=== PATIENT | male | born 1930 | race Caucasian/White ===

== ENCOUNTER → 2016-09-11 | Outpatient (CLI) | payer OTHER | LOC: BHFA 10:00 | PROVIDERS: ATTEND Internal Medicine | DX: R06.00 Dyspnea, unspecified (principal) ==

== ENCOUNTER → 2016-09-28 | Outpatient (CLI) | payer OTHER | LOC: BHFA 09:30 | PROVIDERS: ATTEND Internal Medicine Cardiovascular Disease | DX: R06.09 Other forms of dyspnea (principal); I10 Essential (primary) hypertension; D68.51 Activated protein C resistance ==

== ENCOUNTER 2017-03-17 08:21 | Day surgery (SDC) | payer OTHER ==
[2017-03-17 08:52] VITALS: RESP 16; TEMP 97.7
--- NOTE | 2017-03-17 09:45 | PDPROPOC ---
Sedation Plan of Care ASA Classification: ASA 3 Planned drugs: versed fentanyl Mallampati Score: Class 2 332 Rule: 322
--- NOTE | 2017-03-17 09:48 | PDGENHP ---
History & Physical Chief Complaint: positive cologaurd test History of Present Illness: last colon 2010, now with positive cologaurd Pertinent Past, Social, Family History: no toabacco, social alcohol fhx noncontrib Relevant Physical Exam: A+Ox3, CTA, S1S2, RRR, +BS, soft nt Cardiorespiratory Assessment: CTA, S1S2, RRR class 3 pt
[2017-03-17] MEDS ORDERED: MIDAZOLAM 2 MG/2 ML VIAL ONE (09:49)
[2017-03-17] MEDS ORDERED: fentaNYL 100 MCG/2 ML INJ ONE (09:50)
--- NOTE | 2017-03-17 10:28 | POSTOPPROG ---
Post Op Note Date of Operation: 03/17/17 Surgeon: J Carlos Shelton Anesthesia: IV Sedation (versed 2.5 mg fetanyl 75 mcg iv) Pre-op Diagnosis: positive cologaurd Post-op Diagnosis: two small 2-3mm polyps, diverticulosis Indication: positive cologaurd Procedure: colon with bx Findings: diverticulosis in sig, d c, transverse, two small polyps in tc removed with Inf/Abcess present in the surg proc area at time of surgery?: No EBL: Minimal (few ml vrom bx) Complications: none immediate
[2017-03-17 11:03] VITALS: BP 145/68; PULSE 54; O2SAT 95
--- NOTE | 2017-03-17 20:49 | GPN ---
[f rep st] PROCEDURE NOTE DATE OF PROCEDURE: 03/17/2017 PROCEDURE: Colonoscopy and biopsy. INDICATIONS: Positive Cologuard test. Last colonoscopy was in 2010 and revealed diverticulosis and no polyps. INFORMED CONSENT: I discussed with the patient regarding the procedure, alternatives, benefits, and risks including bleeding, perforation, infection, risk of medication. Informed consent was signed and witnessed. COMPLICATIONS: None immediate. MEDICATIONS USED: Versed 2.5 mg IV, fentanyl 75 mcg IV. DESCRIPTION OF PROCEDURE: Patient was placed in left lateral decubitus position. After adequate IV sedation, I performed a visual and digital and anorectal examination. The video colonoscope was ins erted via the rectum and advanced under visualization to the cecum, identified by the ileocecal valv e, confluence of taeniae, and appendiceal orifice. I was able to enter the terminal ileum. Upon wi thdrawal of the instrument, careful attention was paid to mucosal detail. The prep was very good. I noted a 2-3 mm semi-sessile polyp in the proximal transverse colon that was removed in total by co ld biopsy. There was an additional 2-3 mm abnormality in the distal transverse colon, that was eith er a polyp or a lymphoid aggregate. This was removed in total by cold biopsy in piecemeal fashion. The patient did have diverticulosis noted in the sigmoid colon, descending colon, and transverse co otilio. Retroflexed examination was performed in the rectum. When I did a retroflexed examination in the rectum I did notice altered vascularity, consistent with his radiation for his prostate cancer. The endoscope was un-retroflexed and advanced back to the proximal ascending colon and air was remov ed. The endoscope was then completely withdrawn, confirming the above findings. The patient tolera baldev the procedure well and was transferred to the recovery room in satisfactory condition. IMPRESSION: 1. Two small 2-3 mm polyps in the transverse colon, 1 in the distal, 1 in the proximal, removed in total by cold biopsy in piecemeal fashion. 2. Diverticulosis in the transverse colon, sigmoid colon, and descending colon. 3. Vascular changes in the rectum, consistent with radiation from his prostate treatment. RECOMMENDATIONS: 1. Follow up pathology on polyps. 2. The patient to restart Lovenox and Coumadin today as per managing physician. 3. High-fiber, high fluid diet. There is no need to avoid seeds or nuts with diverticulosis. 4. No repeat colonoscopies given patient's age and negative exam in 2011 and this exam with only ti ny possible polypoid lesions. 5. Our GI National Guidelines do not recommend further evaluation for a positive Cologuard test if the colonoscopy is negative. 6. Follow up with PCP and specialist as scheduled. Thank you for allowing me to participate in his health care. Do not hesitate to call me if you have any questions. Copy requested to: Dr. Letty Andrade /[id number]/MODL
== END 2017-03-17 11:23 | disposition home or self-care (01) ==
LOC: FSGY 08:21
PROVIDERS: ATTEND Internal Medicine Gastroenterology
PROC: 0DBL8ZZ Excision of Transverse Colon, Via Natural or Artificial Opening Endoscopic (ICD-10-PCS; principal; 2017-03-17 09:45)
PROC: 0DJD8ZZ Inspection of Lower Intestinal Tract, Via Natural or Artificial Opening Endoscopic (ICD-10-PCS; principal; 2017-03-17 09:45)
DX: Z12.11 Encounter for screening for malignant neoplasm of colon (principal); D12.3 Benign neoplasm of transverse colon; K57.30 Diverticulosis of large intestine without perforation or abscess without bleeding; Z92.3 Personal history of irradiation; Z85.46 Personal history of malignant neoplasm of prostate; Z79.01 Long term (current) use of anticoagulants
CPT/HCPCS: J2250; J3010

== ENCOUNTER 2017-06-24 12:03 | Observation (INO) | payer OTHER ==
--- NOTE | 2017-06-24 12:40 | EDPHY ---
H & P Stated Complaint: difficulty finding words at 10 am this am lasting 30 m ins now resolved Time Seen by Provider: 06/24/17 12:39 HPI/ROS: CHIEF COMPLAINT: Transient vision loss, expressive aphasia HISTORY OF PRESENT ILLNESS: The patient presents the ED after he experienced a focal area of transient vision loss in his left eye followed by an episode of expressive aphasia earlier today. The patient's symptoms have resolved. He denies any focal numbness or weakness. He denies any headache. The patient is chronically anticoagulated for thromboembolic disease. The patient has no prior history of documented TIA or stroke. The patient reports a similar transient loss of vision in the left eye 6 weeks ago. He was evaluated by his instructional services librarian who reported he detected no obvious ocular disease. The patient denies history of fall or trauma. He denies history of neck pain or cervical manipulation. REVIEW OF SYSTEMS: A comprehensive 10 point review of systems is otherwise negative aside from elements mentioned in the history of present illness. Source: Patient Exam Limitations: No limitations - Personal History Current Tetanus/Diphtheria Vaccine: Unsure Current Tetanus Diphtheria and Acellular Pertussis (TDAP): Unsure Tetanus Vaccine Date: <10 YRS - Medical/Surgical History Hx Asthma: Yes Hx Chronic Respiratory Disease: No Hx Diabetes: No Hx Cardiac Disease: No Hx Renal Disease: No Hx Cirrhosis: No Hx Alcoholism: No Hx HIV/AIDS: No Hx Splenectomy or Spleen Trauma: No Other PMH: HTN,factor V, P.E., KNEE SURGERY, ASTHMA. SHOULDER AND ARM SURGERY, PROSTATE CANCER, prostate cyro-ablation, "irregular heart rate" - Social History Smoking Status: Never smoked - Physical Exam Exam: General Appearance: Alert, no distress Eyes: Pupils equal and round no pallor or injection ENT, Mouth: Mucous membranes moist Respiratory: There are no retractions, lungs are clear to auscultation Cardiovascular: Regular rate and rhythm Gastrointestinal: Abdomen is soft and nontender, no masses, bowel sounds normal Neurological: A&O, normal motor function, normal sensory exam, normal cranial nerves, NIH stroke scale 0 Skin: Warm and dry, no rashes Musculoskeletal: Neck is supple nontender Extremities: symmetrical, full range of motion Psychiatric: Patient is oriented X 3, there is no agitation Constitutional: Initial Vital Signs Temperature (C) 37.0 C 06/24/17 12:06 Heart Rate 83 06/24/17 12:06 Respiratory Rate 16 06/24/17 12:06 Blood Pressure 172/87 H 06/24/17 12:06 O2 Sat (%) 97 06/24/17 12:06 O2 Delivery Mode Room Air Allergies/Adverse Reactions: No Known Allergies Allergy (Unverified 02/05/15 03:12) Home Medications: Medication Instructions Recorded Ascorbic Acid [Vitamin C] 1,000 mg PO DAILY 10/08/11 Atorvastatin Calcium [Lipitor] 10 mg PO DAILY20 10/08/11 Beta-Carotene(A) W-C & E/Min 1 tab PO DAILY 10/08/11 [Ocuvite] Cholecalciferol (Vitamin D3) 1,000 unit PO BID 10/08/11 [Vitamin D3] MAGNESIUM [Magnesium Oxide] 1 tab PO DAILY 10/08/11 Terazosin HCl 10 mg PO DAILY20 10/08/11 Triamterene/Hydrochlorothiazid 1 each PO DAILY 10/08/11 [Triamterene-Hctz 37.5-25 mg Cp] Verapamil HCl [Calan Sr] 180 mg PO BID 10/08/11 Warfarin Sodium [Coumadin] 2.5 mg PO TUTHSA 10/08/11 Warfarin Sodium [Coumadin] 5 mg PO SUMOWEFR 10/08/11 Zafirlukast [Accolate] 20 mg PO BID 10/08/11 Degarelix Acetate 12/10/15 Allopurinol BID 03/17/17 Lovenox 100 MG (*) 100 mg SQ BID 03/17/17 Medical Decision Making - Diagnostics EKG Interpretation: EKG: Complete interpretation has been separately recorded in the [employer]ster archive. Summary impression: Sinus rhythm, no abnormalities appreciated Imaging Results: Imaging Impressions Head CT 06/24/17 13:14 Impression: Nothing acute on this noncontrasted scan. Findings and recommendations discussed with Dr. Keny Fermin at 1400 hour, 06/24/2017. Final report concurs with initial preliminary interpretation. Head CTA 06/24/17 13:14 Impression: Nothing focal or acute. Findings discussed with Keny Fermin, at 1400 hours, 06/24/2017. Final report concurs with initial preliminary interpretation. Neck CTA 06/24/17 13:14 Impression: 1. Mild amount of bilateral carotid bulb plaque, left worse than right. No focal rate-limiting stenosis. 2. Significant tortuosity to the left internal carotid artery at the cervical portion. Findings discussed with Keny Fermin, at 1400 hours, 06/24/2017. Final report concurs with initial preliminary interpretation. Note: All stenoses are calculated using NASCET criteria. ED Course/Re-evaluation: The patient is currently anticoagulated with Coumadin. He presents to the ED after possible TIA. His NIH stroke scale is currently 0. He is not a candidate for thrombolytics therapy. The patient was taken for a CT scan of the brain which demonstrates no evidence of intracranial hemorrhage. CT angiogram of the head neck demonstrate no evidence of obvious stenosis or dissection. The patient remained neurologically intact in the ED. His INR is slightly subtherapeutic at 1.6. I discussed the case with his primary care provider. The patient will be admitted to the hospital this evening for possible TIA. Because the patient's INR is subtherapeutic he will be bridged. Consultation is made with Dr. Small from the hospitalist service. The patient will be started on IV heparin. Dr. Pérez from Neurology will also consult on the patient. Differential Diagnosis: Differential diagnosis considered includes stroke, TIA, hypertensive emergency, migraine variant, intracranial hemorrhage - Data Points Laboratory Results: Laboratory Results 06/24/17 12:52 06/24/17 12:52 06/24/17 06/24/17 06/24/17 13:02 12:52 12:52 WBC RBC Hgb POC Hgb 15.0 gm/dL gm/dL (13.7-17.5) Hct POC Hct 44 % % (40-51) MCV MCH MCHC RDW Plt Count MPV Neut % (Auto) Lymph % (Auto) [place] % (Auto) Eos % (Auto) Baso % (Auto) Nucleat RBC Rel Count Absolute Neuts (auto) Absolute Lymphs (auto) Absolute Monos (auto) Absolute Eos (auto) Absolute Basos (auto) Absolute Nucleated RBC Immature Gran % Immature Gran # PT 19.3 SEC H SEC (12.0-15.0) INR 1.62 H (0.83-1.16) POC Sodium 138 mEq/L mEq/L (134-144) Sodium 137 mEq/L mEq/L (134-144) POC Potassium 3.6 mEq/L mEq/L (3.3-5.0) Potassium 4.0 mEq/L mEq/L (3.5-5.2) POC Chloride 101 mEq/L mEq/L (97-110) Chloride 100 mEq/L mEq/L (97-110) Carbon Dioxide 26 mEq/l mEq/l (22-31) Anion Gap 11 mEq/L mEq/L (8-16) POC BUN 20 mg/dL mg/dL (7-23) BUN 21 mg/dL mg/dL (7-23) Creatinine 1.2 mg/dL mg/dL (0.7-1.3) POC Creatinine 1.4 mg/dL H mg/dL (0.7-1.3) Estimated GFR 58 Glucose 93 mg/dL mg/dL (70-100) POC Glucose 99 mg/dL mg/dL (70-100) Calcium 9.8 mg/dL mg/dL (8.5-10.4) 06/24/17 12:52 WBC 3.07 10^3/uL L 10^3/uL (3.80-9.50) RBC 4.55 10^6/uL 10^6/uL (4.40-6.38) Hgb 14.9 g/dL g/dL (13.7-17.5) POC Hgb Hct 42.1 % % (40.0-51.0) POC Hct MCV 92.5 fL fL (81.5-99.8) MCH 32.7 pg pg (27.9-34.1) MCHC 35.4 g/dL g/dL (32.4-36.7) RDW 13.2 % % (11.5-15.2) Plt Count 122 10^3/uL L 10^3/uL (150-400) MPV 9.8 fL fL (8.7-11.7) Neut % (Auto) 65.5 % % (39.3-74.2) Lymph % (Auto) 22.8 % % (15.0-45.0) [place] % (Auto) 10.4 % % (4.5-13.0) Eos % (Auto) 0.7 % % (0.6-7.6) Baso % (Auto) 0.3 % % (0.3-1.7) Nucleat RBC Rel Count 0.0 % % (0.0-0.2) Absolute Neuts (auto) 2.01 10^3/uL 10^3/uL (1.70-6.50) Absolute Lymphs (auto) 0.70 10^3/uL L 10^3/uL (1.00-3.00) Absolute Monos (auto) 0.32 10^3/uL 10^3/uL (0.30-0.80) Absolute Eos (auto) 0.02 10^3/uL L 10^3/uL (0.03-0.40) Absolute Basos (auto) 0.01 10^3/uL L 10^3/uL (0.02-0.10) Absolute Nucleated RBC 0.00 10^3/uL 10^3/uL (0-0.01) Immature Gran % 0.3 % % (0.0-1.1) Immature Gran # 0.01 10^3/uL 10^3/uL (0.00-0.10) PT INR POC Sodium Sodium POC Potassium Potassium POC Chloride Chloride Carbon Dioxide Anion Gap POC BUN BUN Creatinine POC Creatinine Estimated GFR Glucose POC Glucose Calcium Point of Care Test Results: 06/24/17 13:02 POC Sodium 138 POC Potassium 3.6 POC Chloride 101 POC BUN 20 POC Creatinine 1.4 H POC Glucose 99 Departure - Departure Disposition: [facility] Inpatient Acute Clinical Impression: Transient cerebral ischemia Condition: Good Referrals: Steve Castillo MD [Primary Care Provider] - As per Instructions
[2017-06-24 13:03] LABS: % IMMATURE GRANULYOCYTES 0.3 % (0.0-1.1); ABSOLUTE IMMATURE GRANULOCYTES 0.01 10^3/uL (0.00-0.10); ADD DIFF? NO; ADD MORPH? NO; ADD SCAN? NO; ATYPICAL LYMPHOCYTE FLAG 0 (0-99); FRAGMENT RBC FLAG 0 (0-99); HEMATOCRIT 42.1 % (40.0-51.0); HEMOGLOBIN 14.9 g/dL (13.7-17.5); LEFT SHIFT FLG 0 (0-99); LIPEMIA HEMOLYSIS FLAG 90 (0-99); MEAN CELL HEMOGLOBIN 32.7 pg (27.9-34.1); MEAN CELL HEMOGLOBIN CONCENTR. 35.4 g/dL (32.4-36.7); MEAN CELL VOLUME 92.5 fL (81.5-99.8); MEAN PLATELET VOLUME 9.8 fL (8.7-11.7); PLATELET CLUMPS FLAG 0 (0-99); PLATELET COUNT 122 10^3/uL (150-400); RED BLOOD CELL COUNT 4.55 10^6/uL (4.40-6.38); RED CELL DISTRIBUTION WIDTH 13.2 % (11.5-15.2)
--- NOTE | 2017-06-24 13:03 | CPEKG ---
Heart Rate: 72 RR Interval: 833 P-R Interval: 176 QRSD Interval: 96 QT Interval: 440 QTC Interval: 482 P [place]: 76 QRS [place]: -1 T Wave [place]: 68 EKG Severity - BORDERLINE ECG - EKG Impression: SINUS RHYTHM Electronically Signed By: Keny Fermin 24-Jun-2017 13:24:57
[2017-06-24 13:13] LABS: INR 1.62 (0.83-1.16); PROTIME(PATIENT) 19.3 SEC (12.0-15.0)
[2017-06-24 13:19] LABS: ANION GAP 11 mEq/L (8-16); CALCIUM 9.8 mg/dL (8.5-10.4); CARBON DIOXIDE 26 mEq/l (22-31); CHLORIDE 100 mEq/L (97-110); CREATININE 1.2 mg/dL (0.7-1.3); GLOMERULAR FILTRATION RATE 58; GLUCOSE 93 mg/dL (70-100); SODIUM 137 mEq/L (134-144)
[2017-06-24] MEDS ORDERED: IOPAMIDOL (ISOVUE 370) 100 ML BTL IV ONE (13:20)
[2017-06-24] MEDS ORDERED: HEPARIN/DEXTROSE 500 ML IV ONE (14:57)
[2017-06-24] MEDS ORDERED: HEPARIN 10,000 UNIT/10 ML MDV IVP ONE (14:57)
[2017-06-24] MEDS ORDERED: HEPARIN 10,000 UNIT/10 ML MDV IVP PRN (14:59)
[2017-06-24] MEDS ORDERED: HEPARIN/DEXTROSE 500 ML IV SCH (15:00)
[2017-06-24] MEDS ORDERED: hydrALAZINE 20 MG/ML VIAL IVP PRN (15:00)
[2017-06-24] MEDS ORDERED: ONDANSETRON 4 MG/2 ML VIAL IVP PRN (15:04)
[2017-06-24] MEDS ORDERED: ACETAMINOPHEN 325 MG TAB PO PRN (15:04)
[2017-06-24] MEDS ORDERED: ONDANSETRON DISINTEGRATING 4 MG TAB PO PRN (15:04)
[2017-06-24] MEDS ORDERED: ALBUTEROL 3 ML DEYVIAL IH PRN (15:04)
--- NOTE | 2017-06-24 15:51 | PDGENHP ---
History and Physical - Chief Complaint Left eye vison loss - History of Present Illness 86 yo pleasant male with hx of chronic AC for hx of DVT/PE who has transient left eye vision loss and expressive aphagia lasting 30 minutes today. All sx's have resolved. INR is subtherapeutic at 1.6. He has a similar episode one month ago while off coumadin for a colonoscopy. CTA Neck/Head and CT are negative for acute findings. He does not have a hx of Afib. EKG shows NSR. Denies focal weakness. CP, SOB, N/V/D, fever PMHx: HLD, Gout, HTN, factor V Leiden deficiency, chronic AC, Hx of DVT/PE, asthma, prostate cancer PSHx: knee surgery, shoulder surgery, prostate surgery Soc Hx: no tobacco, daily ETOH, no illicits FmHx: NC History Information - Allergies/Home Medication List Allergies/Adverse Reactions: No Known Allergies Allergy (Unverified 02/05/15 03:12) Home Medications: Ascorbic Acid [Vitamin C] 1,000 mg PO DAILY 10/08/11 [Last Taken 10/07/11] Atorvastatin Calcium [Lipitor] 10 mg PO DAILY20 10/08/11 [Last Taken 03/14/17] Beta-Carotene(A) W-C & E/Min [Ocuvite] 1 tab PO DAILY 10/08/11 [Last Taken 10/07] Cholecalciferol (Vitamin D3) [Vitamin D3] 1,000 unit PO BID 10/08/11 [Last Taken 03/16/17] MAGNESIUM [Magnesium Oxide] 1 tab PO DAILY 10/08/11 [Last Taken 03/16/17] Terazosin HCl 10 mg PO DAILY20 10/08/11 [Last Taken 03/16/17] Triamterene/Hydrochlorothiazid [Triamterene-Hctz 37.5-25 mg Cp] 1 each PO DAILY 10/08/11 [Last Taken 03/08/17] Verapamil HCl [Calan Sr] 180 mg PO BID 10/08/11 [Last Taken 03/16/17] Warfarin Sodium [Coumadin] 2.5 mg PO TUTHSA 10/08/11 [Last Taken 03/09/17] Warfarin Sodium [Coumadin] 5 mg PO SUMOWEFR 10/08/11 [Last Taken 03/10/17] Zafirlukast [Accolate] 20 mg PO BID 10/08/11 [Last Taken 03/16/17] Degarelix Acetate 12/10/15 [Last Taken Unknown] Allopurinol BID 03/17/17 [Last Taken 03/16/17] Lovenox 100 MG (*) 100 mg SQ BID 03/17/17 [Last Taken 03/16/17] I have personally reviewed and updated: family history, medical history, social history - Social History Smoking Status: Never smoked Review of Systems Review of Systems: ROS: 10pt was reviewed & negative except for what was stated in HPI & below Physical Exam Physical Exam: Temp Pulse Resp BP Pulse Ox 37.0 C 68 18 194/85 H 96 06/24/17 12:06 06/24/17 13:42 06/24/17 13:42 06/24/17 13:42 06/24/17 13:42 Constitutional: no apparent distress, appears nourished, not in pain Eyes: PERRL, EOMI Ears, Nose, Mouth, Throat: moist mucous membranes, hearing normal Cardiovascular: regular rate and rhythym, No irregularly irregular, No edema Respiratory: no respiratory distress, no rales or rhonchi, clear to auscultation Gastrointestinal: normoactive bowel sounds, soft, non-tender abdomen Skin: warm Musculoskeletal: full muscle strength Neurologic: AAOx3, sensation intact bilaterally Psychiatric: interacting appropriately, not anxious, not encephalopathic, thought process linear Lab Data & Imaging Review 06/24/17 12:52 06/24/17 12:52 WBC 3.07 10^3/uL (3.80-9.50) L 06/24/17 12:52 RBC 4.55 10^6/uL (4.40-6.38) 06/24/17 12:52 Hgb 14.9 g/dL (13.7-17.5) 06/24/17 12:52 POC Hgb 15.0 gm/dL (13.7-17.5) 06/24/17 13:02 Hct 42.1 % (40.0-51.0) 06/24/17 12:52 POC Hct 44 % (40-51) 06/24/17 13:02 MCV 92.5 fL (81.5-99.8) 06/24/17 12:52 MCH 32.7 pg (27.9-34.1) 06/24/17 12:52 MCHC 35.4 g/dL (32.4-36.7) 06/24/17 12:52 RDW 13.2 % (11.5-15.2) 06/24/17 12:52 Plt Count 122 10^3/uL (150-400) L 06/24/17 12:52 MPV 9.8 fL (8.7-11.7) 06/24/17 12:52 Neut % (Auto) 65.5 % (39.3-74.2) 06/24/17 12:52 Lymph % (Auto) 22.8 % (15.0-45.0) 06/24/17 12:52 [place] % (Auto) 10.4 % (4.5-13.0) 06/24/17 12:52 Eos % (Auto) 0.7 % (0.6-7.6) 06/24/17 12:52 Baso % (Auto) 0.3 % (0.3-1.7) 06/24/17 12:52 Nucleat RBC Rel Count 0.0 % (0.0-0.2) 06/24/17 12:52 Absolute Neuts (auto) 2.01 10^3/uL (1.70-6.50) 06/24/17 12:52 Absolute Lymphs (auto) 0.70 10^3/uL (1.00-3.00) L 06/24/17 12:52 Absolute Monos (auto) 0.32 10^3/uL (0.30-0.80) 06/24/17 12:52 Absolute Eos (auto) 0.02 10^3/uL (0.03-0.40) L 06/24/17 12:52 Absolute Basos (auto) 0.01 10^3/uL (0.02-0.10) L 06/24/17 12:52 Absolute Nucleated RBC 0.00 10^3/uL (0-0.01) 06/24/17 12:52 Immature Gran % 0.3 % (0.0-1.1) 06/24/17 12:52 Immature Gran # 0.01 10^3/uL (0.00-0.10) 06/24/17 12:52 PT 19.3 SEC (12.0-15.0) H 06/24/17 12:52 INR 1.62 (0.83-1.16) H 06/24/17 12:52 POC Sodium 138 mEq/L (134-144) 06/24/17 13:02 Sodium 137 mEq/L (134-144) 06/24/17 12:52 POC Potassium 3.6 mEq/L (3.3-5.0) 06/24/17 13:02 Potassium 4.0 mEq/L (3.5-5.2) 06/24/17 12:52 POC Chloride 101 mEq/L (97-110) 06/24/17 13:02 Chloride 100 mEq/L (97-110) 06/24/17 12:52 Carbon Dioxide 26 mEq/l (22-31) 06/24/17 12:52 Anion Gap 11 mEq/L (8-16) 06/24/17 12:52 POC BUN 20 mg/dL (7-23) 06/24/17 13:02 BUN 21 mg/dL (7-23) 06/24/17 12:52 Creatinine 1.2 mg/dL (0.7-1.3) 06/24/17 12:52 POC Creatinine 1.4 mg/dL (0.7-1.3) H 06/24/17 13:02 Estimated GFR 58 06/24/17 12:52 Glucose 93 mg/dL (70-100) 06/24/17 12:52 POC Glucose 99 mg/dL (70-100) 06/24/17 13:02 Calcium 9.8 mg/dL (8.5-10.4) 06/24/17 12:52 Assessment & Plan Assessment: #TIA with left eye vision loss and expressive aphagia #HTN #thrombocytopenia #Chronic AC for Hx of factor V Leiden deficiency and PE with subtherapeutic INR #HLD #Daily social ETOH use Plan -Neuro to see -Permissive HTN -Cont with Heparin Bridge, Coumadin -May benefit from other agent such as Xarelto or Eliquis -Given low INR, will hold off on Aspirin for now -TTE, telemetry, risk factor reduction -PT/OT -Monitor platelets Code: Full
[2017-06-24 16:24] LABS: HEMOGLOBIN A1C 5.2 % (4.0-6.0)
[2017-06-24 16:24] LABS: CHOLESTEROL 221 mg/dL (140-220); CHOLESTEROL/HDL RATIO 2.73 RATIO (1.00-4.97); HIGH DENSITY LIPOPROTEIN 81 mg/dL (40-65); LDL/HDL RATIO 1.43 RATIO (1.00-3.64); LOW DENSITY LIPOPROTEIN 116 mg/dL (80-100); NON-HIGH DENSITY LIPOPROTEIN 140 mg/dL (90-129); TRIGLYCERIDE 124 mg/dL (40-150); VERY LOW DENSITY LIPOPROTEINS 24 mg/dL (8-25)
[2017-06-24] MEDS ORDERED: MONTELUKAST SODIUM 10 MG TAB PO SCH (18:00)
[2017-06-24] MEDS ORDERED: TERAZOSIN HCL 5 MG CAP PO SCH (20:00)
[2017-06-24] MEDS ORDERED: ATORVASTATIN CALCIUM 10 MG TAB PO SCH (20:00)
[2017-06-24] MEDS: CHOLECALCIFEROL VIT D3 1,000 UNITS TAB PO SCH (20:54)
[2017-06-24] MEDS: ALLOPURINOL 100 MG TAB PO SCH (20:54)
[2017-06-24] MEDS ORDERED: WARFARIN SODIUM 5 MG TAB PO ONE (21:00)
[2017-06-24 21:08] LABS: INR 1.74 (0.83-1.16); PROTIME(PATIENT) 20.4 SEC (12.0-15.0)
[2017-06-24 22:23] LABS: APTT 207.4 SEC (23.0-38.0)
[2017-06-25 04:53] LABS: % IMMATURE GRANULYOCYTES 0.3 % (0.0-1.1); ABSOLUTE IMMATURE GRANULOCYTES 0.01 10^3/uL (0.00-0.10); ADD DIFF? NO; ADD MORPH? NO; ADD SCAN? NO; ATYPICAL LYMPHOCYTE FLAG 0 (0-99); FRAGMENT RBC FLAG 0 (0-99); HEMATOCRIT 37.9 % (40.0-51.0); HEMOGLOBIN 13.1 g/dL (13.7-17.5); LEFT SHIFT FLG 0 (0-99); LIPEMIA HEMOLYSIS FLAG 90 (0-99); MEAN CELL HEMOGLOBIN 31.8 pg (27.9-34.1); MEAN CELL HEMOGLOBIN CONCENTR. 34.6 g/dL (32.4-36.7); MEAN PLATELET VOLUME 10.1 fL (8.7-11.7); PLATELET CLUMPS FLAG 0 (0-99); PLATELET COUNT 129 10^3/uL (150-400); RED BLOOD CELL COUNT 4.12 10^6/uL (4.40-6.38); RED CELL DISTRIBUTION WIDTH 13.2 % (11.5-15.2)
[2017-06-25 05:29] LABS: ANION GAP 8 mEq/L (8-16); CALCIUM 8.8 mg/dL (8.5-10.4); CARBON DIOXIDE 24 mEq/l (22-31); CHLORIDE 103 mEq/L (97-110); CREATININE 1.1 mg/dL (0.7-1.3); GLOMERULAR FILTRATION RATE > 60; GLUCOSE 103 mg/dL (70-100); MAGNESIUM 1.9 mg/dL (1.6-2.3); POTASSIUM 3.7 mEq/L (3.5-5.2); SODIUM 135 mEq/L (134-144)
[2017-06-25 08:38] LABS: INR 1.79 (0.83-1.16); PROTIME(PATIENT) 20.9 SEC (12.0-15.0)
[2017-06-25] MEDS: ALLOPURINOL 100 MG TAB PO SCH (08:56)
[2017-06-25] MEDS: CHOLECALCIFEROL VIT D3 1,000 UNITS TAB PO SCH (08:56)
[2017-06-25] MEDS ORDERED: MAGNESIUM OXIDE 400 MG TAB PO SCH (09:00)
--- NOTE | 2017-06-25 11:05 | NEUROPROG ---
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 He has a noted history of factor V Leiden, but he tells me he self-diagnosed this without testing given his recurrent thromoembolic disease and [place] background (he is originally from [place]). He states about 8 weeks ago he was taken off warfarin for a colonoscopy. After the procedure, his INR remained subtherapeutic but he opted for less aggressive corrective measures. 6 weeks ago he had a brief and transient event of left monocular visual disturbance manifest as a blind spot in his central vision lasting only several minutes. He went to an medical technicians the next day and was told his eyes were fine. Yesterday he was at home and again had abrupt onset left monocular vision loss, this time involving the monocular right hemifield. This persisted and was shortly followed by a sense of confusion and expressive language difficulty when trying to phone a friend. His returned home and symptoms had resolved (lasting total of 30 mins). His drove him to the ED out of concern for a stroke. On arrival, CT head wo was unremarkable. CTA head/neck showed no hemodynamically significant stenosis or occlusive disease. His INR was found to be subtherapeutic at 1.6. MRI brain wo was done on admission to the floor with no evidence of acute ischemia. He was started on a heparin drip with intent of bridging his warfarin back to a therapeutic level. ROS: As per the HPI, otherwise a complete 12 point ROS was performed and is negative ALLERGIES AND MEDS: As recorded in the EMR - reviewed and reconciled PFSH: As per the intake H&P by Dr. Srivastava from yesterday EXAM: VS reviewed in EMR GEN: WDWN laying in NAD HEENT: NCAT, sclera anicteric, conjunctiva not injected, MMM, oropharynx clear, no scalp tenderness NECK: supple, nontender, no meningismus CV: RRR s1 s2 wo m/r/c/g. Carotid pulses 2+ wo bruit NEURO: NIHSS 0 MS: awake, alert, oriented to all spheres. Speech nondysarthric. No language disturbance. Follows commands. Attends to both sides. Recent/remote memory grossly intact. Mood euthymic. Good fund of knowledge. CN: pupils 4mm round and reactive. Fundi with sharp discs. VFF. Primary gaze centered. Full ocular motility. Facial sensation preserved. Face symmetric. Hearing grossly intact to finger rub. Palatoglossal movements intact. Shoulder shrug and head turn strong. MOTOR: normal bulk/tone. No adventitial movements. Full power throughout. SENSORY: intact to all modalities throughout. No extinction. COORD: no ataxia FN/HS. Hubert preserved. REFLEX: plantars down. No clonus. Absent ankle jerks, other DTRS 09/09. GAIT: deferred to PT safety eval DATA REVIEW: Labs reviewed in EMR LDL 116 A1c 5.2 PERSONALLY INTERPRETED RESULTS AND DATA: MRI brain wo and CTA head/neck per the HPI IMPRESSION AND RECOMMENDATIONS: // TIA // HX RECURRENT THROMBOEMBOLISM WITH DVT/PEs // HTN // HLD // SNORING Patient with symptoms that would localize to the left eye and left hemisphere. Likely proximal embolic event resulting in transient multifocal ischemia. CTA shows no significant disease in the anterior circulation. Likely cardioembolism. Possibility of paradoxical embolization is raised given his subtherapeutic INR and history of DVT/PE. Will check TTE with bubble study. Interestingly he has been having difficulty with his INR, but also tells me he takes a vitamin K supplement at home, something called "K2" to help his caltrate supplement "absorb into the bone." His also notes longstanding severe snoring. - cont anticoagulation - discussed transitioning to NOAC given his difficulty with INR control - he is agreeable. - goal normotension - increase statin for goal LDL < 100 - A1c at goal < 6.5 - will need outpatient YESENIA screening - TTE today (namely to assess for thrombus and PFO) - will need mobile outpatient cardiac telemetry to eval for occult paradoxical arrhythmia - 30d Holter vs LINQ - PT/OT/STR[employer] AND B[employer]ER CONTROLLER consults - stroke education - overall, needs to be anticoagulated regardless of mechanism Objective: Vital Signs Temp Pulse Resp BP Pulse Ox 36.2 C 57 L 14 115/50 L 97 06/25/17 08:00 06/25/17 08:26 06/25/17 08:00 06/25/17 08:26 06/25/17 08:00 Laboratory Results 06/25/17 04:20 06/25/17 04:20 06/24/17 06/25/17 06/26/17 05:59 05:59 05:59 Intake Total 700 400 Output Total 500 Balance 200 400 PT 20.9 SEC (12.0-15.0) H 06/25/17 04:20 INR 1.79 (0.83-1.16) H 06/25/17 04:20 Allergies/Adverse Reactions: No Known Allergies Allergy (Unverified 02/05/15 03:12)
[2017-06-25 11:27] VITALS: RESP 16
[2017-06-25 11:36] VITALS: TEMP 98.1; O2SAT 92
[2017-06-25 15:17] VITALS: BP 123/68; PULSE 88
--- NOTE | 2017-06-25 15:28 | ECHO ---
[email or web address] [place] [id number] Main: [phone] Fax: Transthoracic Echocardiogram Name: MELIZA MCGUIRE MR#: [id number] Study Date: 06/25/2017 Study Time: 12:34 PM Date of : 1930 Age: 86 year(s) Height: ( ) Weight: ( ) BSA: Gender: Male Examination: Echo Indication: TIA, Eval for shunt Image Quality: Contrast: Requested by: Blu Srivastava BP: 122 mmHg/68 mmHg Heart Rate: Rhythm: Indication: TIA, Eval for shunt Procedure Staff Corporate Coordinator: Padmini Nichols Reading Physician: Rissa aJcob Requesting Provider: Conclusions: Normal size left ventricle. Normal global systolic LV function. The ejection fraction is estimated to be 55-60 %. No regional wall motion abnormality. Normal size right ventricle. Normal RV function. The left atrium is normal in size. An agitated saline study was performed and was negative for intracardiac shunting. No aortic valve stenosis is present. There is no aortic valve regurgitation. There is no previous echocardiogram for comparison. Measurements: Chambers Valvular Assessment AV/MV Valvular Assessment TV/PV Normal Normal Normal Name Value Range Name Value Range Name Value Range EF Range: 55-60 % Continued Measurements: Findings: Left Ventricle: Normal size left ventricle. Normal global systolic LV function. The ejection fraction is estimated to be 55-60 %. No regional wall motion abnormality. Right Ventricle: Normal size right ventricle. Normal RV function. Left Atrium: The left atrium is normal in size. An agitated saline study was performed and was negative for Patient: MELIZA MCGUIRE Study Date: 06/25/2017 Page 1 of 2 12:34 PM intracardiac shunting. Right Atrium: The right atrium is normal in size. Mitral Valve: The mitral valve is normal in appearance. There is no significant mitral valve regurgitation. Aortic Valve: The aortic valve is tri-leaflet. Mild aortic cusp calcification is noted. No aortic valve stenosis is present. There is no aortic valve regurgitation. Tricuspid Valve: The tricuspid valve appears normal. Trivial tricuspid valve regurgitation. Pulmonic Valve: The pulmonic valve is normal in appearance. Trivial to mild pulmonic valve regurgitation. Pericardium: No pericardial effusion. (No Signature Object) Patient: MELIZA MCGUIRE Study Date: 06/25/2017 Page 2 of 2 12:34 PM [id number]
[2017-06-25] MEDS ORDERED: WARFARIN SODIUM 5 MG TAB PO SCH (16:00)
--- NOTE | 2017-06-25 16:33 | ASMTCMCOM ---
CM Note CM Note Notes: Pt medically stable for d/c, no CM d/c needs identified. Date Signed: 06/25/2017 04:32 PM Electronically Signed By:ART Gonzalez
--- NOTE | 2017-06-25 22:59 | GDS ---
[f rep st] DISCHARGE SUMMARY ALL RELEVANT STUDIES: 1. Brain MRI showing normal brain. 2. Echocardiogram with no PFO. No thrombus. Normal EF. No valvular abnormalities. 3. Neck CT angiogram with no flow-limiting stenosis. 4. Head CT angiogram nothing focal or acute. ALL DIAGNOSES: 1. Suspected transient ischemic attack with aphasia and vision loss, deficits resolved. 2. Hypertension. 3. Thrombocytopenia. 4. Chronic anticoagulation. 5. Hyperlipidemia. HOSPITAL COURSE: An 86-year-old man admitted with aphasia and vision loss. This resolved. TIA work up negative. He is on chronic anticoagulation for clots. However, his INR was 1.6. After a long di scussion, we have decided to switch to Eliquis. He is amenable to this. He will get a dose of 5 mg p.o. twice daily. LDL was also 116. I have doubled his statin to Lipitor 20 mg daily. I have given him prescriptions for both of these. He will follow up with Dr. Castillo 3 days after discharge, and he will get an event monitor ordered at that point. He should also follow up with Dr. Reyes, his photographic plate maker. He had no events on telemetry. He is discharged in stable condition with his wif e. /[id number]/MODL
--- NOTE | 2017-06-26 11:47 | ASDISCHSUM ---
Discharge Information Plan Status:Home with No Needs Medically Cleared to Leave: Discharge Date:06/25/2017 04:52 PM CM D/C Disposition:Home, Routine, Self-Care ADT D/C Disposition:Home, Routine, Self-Care Projected Discharge Date:06/25/2017 04:52 PM Transportation at D/C: Discharge Delay Reason: Follow-Up Date:06/25/2017 04:52 PM Discharge Slot: Final Diagnosis: Placement Information Patient Contact Information Contact Name:ERNESTO Relationship: Address:[address] City:[place] Alternate Phone: [facility]/Zip Code:[place] [address] Email: Financial Information Financial Class: Primary Plan Desc:MEDICARE OUTPATIENT Primary Plan Number:[id number] Secondary Plan Desc:[facility] Secondary Plan Number:[id number] Assessment Information BC CM Progress Note CM Note CM Note Notes: Pt medically stable for d/c, no CM d/c needs identified. Date Signed: 06/25/2017 04:32 PM Electronically Signed By:ART Gonzalez Intervention Information Intervention Type:*MARCUS-Signed Date of Service:06/25/2017 10:09 AM Patient Type:Observation Staff Member:Melissa Phelps Hours: Discipline: Severity: Comment:
== END 2017-06-25 16:52 | disposition home or self-care (01) ==
LOC: F3N 17:00
PROVIDERS: ADMIT Family Medicine; ATTEND Student in an Organized Health Care Education/Training Program
DX: R47.01 Aphasia (principal); H53.122 Transient visual loss, left eye; J45.909 Unspecified asthma, uncomplicated; D68.2 Hereditary deficiency of other clotting factors; Z79.01 Long term (current) use of anticoagulants; Z86.711 Personal history of pulmonary embolism
CPT/HCPCS: 70450; 70496; 70498; 70551; 93005; 93306; 99285; G0378; J1644; Q9967; 82947-QW; 85520-90